=== PATIENT | female | born 1960 | race Caucasian/White ===

== ENCOUNTER → 2018-02-10 09:51 | Outpatient (CLI) | payer BC, SELFPAY ==
--- NOTE | 2018-02-10 09:36 | DI.REPORT_ITS ---
SYMPTOMS/DIAGNOSIS: F/U RT TKA BILATERAL KNEES AND LONG LEG LENGTH STUDY: Comparison with examination from 01/14/17. The patient has a right total knee replacement. The orthopedic hardware appears in good position. No lucencies are seen in or about the orthopedic hardware. The bones appear intact. The left knee shows mild periarticular spurring of the lateral femoral tibial joint in the posterior patella. The bones appear intact and normally mineralized. There do appear to be mild degenerative changes of the left ankle with narrowing of the medial joint space. There is a question of a lucency seen in the medial aspect of the talar dome and an osteochondral defect can not be excluded. The hip joints are well maintained. The right lower extremity measures 89.2 cm. The left lower extremity measures 88.5 cm. IMPRESSION: 1. Status post right TKR. 2. Mild degenerative changes of the left knee.
== END ==
PROVIDERS: Visit Provider Student in an Organized Health Care Education/Training Program
DX: M17.12 Unilateral primary osteoarthritis, left knee (principal); Z96.651 Presence of right artificial knee joint; Z47.1 Aftercare following joint replacement surgery
CPT/HCPCS: 73560; 77073

== ENCOUNTER 2018-05-01 00:43 | Outpatient (CLI) | payer BC, SELFPAY ==
--- NOTE | 2018-05-01 08:00 | DI.MAMMO_ITS ---
SYMPTOM/DIAGNOSIS: BREAST CANCER SCREENING MAMMOGRAM: 05/01/18 Mammograms were interpreted according to the usual protocol including computer analysis with CAD system, tomosynthesis and C view imaging. The breasts are of moderate density with fairly symmetrical distribution of fibroglandular tissue. No dominant mass or clumped microcalcifications are identified in either breast. The current examination is compared with previous examinations including April 2017 and there has been no gross interval change in comparison to the previous studies. CONCLUSION: No specific evidence of malignancy at this time. Routine screening examinations are suggested at yearly intervals due to the family history of breast carcinoma. Category 1, breast density category B. MQSA ASSESSMENT OF FINDINGS: Negative. Category 1. Patient will receive a letter notifying them of these results. BI-RADS category B. There are scattered areas of fibroglandular density.
[2018-05-01 08:40] LABS: ALT 27 U/L (12-78); AST 13 U/L (15-37); Albumin 3.7 g/dL (3.4-5.0); Alkaline Phosphatase 114 U/L (46-116); Anion Gap 10.3 mmol/L (3-11); BUN 21 mg/dL (7-18); Bilirubin, Total 0.8 mg/dL (0.2-1.0); CO2 25.7 mmol/L (21.0-32.0); CREATININE 0.95 mg/dL (0.55-1.02); Calcium 9.4 mg/dL (8.5-10.1); Chloride 105 mmol/L (98-107); Glucose 109 mg/dL (70-100); Potassium 4.5 mmol/L (3.5-5.1); Sodium 141 mmol/L (136-145); Total Protein 6.9 g/dL (6.4-8.2)
== END 2018-05-01 01:03 ==
DX: R00.2 Palpitations (principal); M54.5 Low back pain; Z12.31 Encounter for screening mammogram for malignant neoplasm of breast; Z80.3 Family history of malignant neoplasm of breast
CPT/HCPCS: 36415; 77063; 77067; 80053

== ENCOUNTER 2019-04-03 08:49 | Outpatient (CLI) | payer BC, SELFPAY ==
--- NOTE | 2019-04-03 08:29 | DI.RAD_ITS ---
EXAM: XR KNEE LT 1V INDICATION: lt knee pain. COMPARISON: BONE LENGTH from 02/10/2018 RIGHT KNEE LIMITED 1 OR 2 VIEW from 02/10/2018 LEFT KNEE LIMITED 1 OR 2 VIEWS from 02/10/2018 XR KNEE RT 3V AP,LAT,COLETTE from 04/03/2019 TECHNIQUE: 2D digital imaging was performed. A single lateral view was performed. None FINDINGS: No joint effusion is seen. There is mild spurring at the articular aspect of the patella. IMPRESSION:
--- NOTE | 2019-04-03 08:29 | DI.RAD_ITS ---
EXAM: XR KNEE RT 3V AP,LAT,COLETTE INDICATION: Rt knee pain. COMPARISON: RIGHT KNEE LIMITED 1 OR 2 VIEW from 02/10/2018 TECHNIQUE: 2D digital imaging was performed. FINDINGS: There has been no change in the appearance of the right total knee prosthesis or surrounding bone.
== END 2019-04-03 09:09 ==
PROVIDERS: Visit Provider Student in an Organized Health Care Education/Training Program
DX: M25.561 Pain in right knee (principal); M25.562 Pain in left knee; Z96.651 Presence of right artificial knee joint
CPT/HCPCS: 73562; 73560

== ENCOUNTER 2019-04-23 12:16 | Outpatient (REF) | payer BC, SELFPAY ==
--- NOTE | 2019-04-23 10:30 | PAPFT_PTH ---
PATIENT: Tiana Perales LOC: [facility] U#:[id number] AGE/SX: 58/F ROOM: RE04/23/[address]: Viry Barragan APRN : 1960 BED: DIS: 04/23/2019 SPEC #: [id number] RECD: 04/23/19 12:48 STATUS: HERBER RENapoleon #: [id number] SEVERIANO: 04/23/19 10:[address]: Viry Barragan DEPT: [facility] Cytology RECD BY: Bri Hobbs Tissues: 1 - CX/ENDOCX FOR PAP SMEARS Procedures: PAP THIN PREP/UVM Screening HPV DNA PROBE Comments: [id number]
== END 2019-04-23 12:36 ==
LOC: LBN 12:16
DX: Z12.4 Encounter for screening for malignant neoplasm of cervix (principal); Z11.51 Encounter for screening for human papillomavirus (HPV)
CPT/HCPCS: 88142; 87624

== ENCOUNTER 2019-06-26 07:19 | Outpatient (CLI) | payer BC, SELFPAY ==
[2019-06-26 08:22] LABS: Hemoglobin A1C 5.8 % (3.8-5.6)
[2019-06-26 08:37] LABS: Anion Gap 9.7 mmol/L (3-11); BUN 19 mg/dL (7-18); CO2 25.3 mmol/L (21.0-32.0); CREATININE 0.79 mg/dL (0.55-1.02); Calcium 9.2 mg/dL (8.5-10.1); Chloride 105 mmol/L (98-107); Glucose 98 mg/dL (74-106); Potassium 4.4 mmol/L (3.5-5.1); Sodium 140 mmol/L (136-145)
== END 2019-06-26 07:39 ==
DX: Z00.00 Encounter for general adult medical examination without abnormal findings (principal); Z86.39 Personal history of other endocrine, nutritional and metabolic disease; Z13.1 Encounter for screening for diabetes mellitus
CPT/HCPCS: 36415; 80048; 83036

== ENCOUNTER 2019-08-04 02:05 | Outpatient (CLI) | payer BC, SELFPAY ==
--- NOTE | 2019-08-04 08:50 | DI.MAMMO_ITS ---
EXAM: MG MAMMO SCREENING CLINICAL HISTORY: screening,Z12.39. TECHNIQUE: Bilateral full field digital CC and MLO mammographic images were obtained with 3D tomosyn thesis and utilizing computer aided detection (CAD). COMPARISON: Available for comparison. FINDINGS: Masses/Architectural Distortion: None seen. The nodular density in the upper right breast appears sta ble. Microcalcifications: No suspicious pleomorphic-type are seen. Skin Thickening/Nipple Retraction: None. IMPRESSION: 1. No significant interval change with no specific features of malignancy noted. 2. Unless there is more urgent need, screening mammography is recommended, as per [employer] guidelines. ACR BI-RAD Category- 1 Negative Breast Density - Category B - Scattered areas of fibroglandular density A negative radiographic report should not delay biopsy if a dominant or clinically suspicious mass is present. Up to ten percent of cancers are not identified on mammography. A negative report may reinforce clinical impression. Adenosis and dense breasts may obscure an underlying neoplasm. False positive reports average 6 to 10%. Patient will receive a letter notifying them of these results.
== END 2019-08-04 02:25 ==
DX: Z12.31 Encounter for screening mammogram for malignant neoplasm of breast (principal)
CPT/HCPCS: 77063; 77067

== ENCOUNTER 2019-12-31 12:12 | Outpatient (CLI) | payer BC, SELFPAY ==
--- NOTE | 2019-12-31 10:30 | DI.RAD_ITS ---
EXAM: XR KNEE LT 2V AP,LAT CLINICAL HISTORY: eval L knee pain, medial TECHNIQUE: COMPARISON: CR XR KNEE LT 1V from 04/03/2019 FINDINGS: Two views were obtained. The cartilaginous joint spaces appear fairly well maintained. Mild margina l osteophyte formation noted at multiple sites. No other significant bony or soft tissue abnormality seen. IMPRESSION: Mild degenerative changes as described above
== END 2019-12-31 12:32 ==
PROVIDERS: Visit Provider Student in an Organized Health Care Education/Training Program
DX: M25.562 Pain in left knee (principal); M17.12 Unilateral primary osteoarthritis, left knee
CPT/HCPCS: 73560

== ENCOUNTER 2020-01-08 03:40 | Outpatient (CLI) | payer BC, SELFPAY ==
--- NOTE | 2020-01-08 15:00 | DI.MRI_ITS ---
EXAM: MR LOWER JOINT LT WO CLINICAL HISTORY: new left knee pain after twisting, ?MMT,INTERNAL DERANGEMENT, M23.92. TECHNIQUE: Multiplanar multisequence MRI was performed. COMPARISON: CR XR KNEE LT 2V AP,LAT from 12/31/2019 FINDINGS: The examination is limited by patient body habitus and motion artifact. BONES: There is no fracture or contusion pattern. JOINTS: Articular cartilage is unremarkable. Small to moderate joint effusion. Marginal osteophytes are seen in the femoral tibial joint. TENDONS: Extensor mechanism: Unremarkable. Medial retinaculum: Unremarkable. Lateral retinaculum: Unremarkable. Popliteus: Unremarkable. MUSCLES: Unremarkable. MENISCI: Hyperintense signal is seen near the root of the medial meniscus suggestive of a tear. The lateral meniscus is unremarkable. SOFT TISSUES: Edema is seen in the soft tissues around the knee. There is a popliteal cyst. LIGAMENTS: Anterior Cruciate: Unremarkable. Posterior Cruciate: Unremarkable. Medial Collateral:Unremarkable. Lateral Collateral: Unremarkable. OTHER: IMPRESSION: 1. Study limited due to patient body habitus and motion artifact. 2. Hyperintense signal seen near the root of the medial meniscus suggestive of a tear. 3. No definite ligament tear. 4. Joint effusion and popliteal cyst. 5. Degenerative changes of the knee. DATA REPOSITORY:
== END 2020-01-08 04:00 ==
PROVIDERS: Visit Provider Student in an Organized Health Care Education/Training Program
DX: M23.92 Unspecified internal derangement of left knee (principal); M25.562 Pain in left knee; M25.462 Effusion, left knee; M71.22 Synovial cyst of popliteal space [Baker], left knee; M17.12 Unilateral primary osteoarthritis, left knee
CPT/HCPCS: 73721

== ENCOUNTER 2020-04-08 08:35 | Outpatient (CLI) | payer BC, SELFPAY ==
[2020-04-09 12:43] LABS: COVID-19 RT-PCR Result NEGATIVE (Negative)
== END 2020-04-08 08:55 ==
PROVIDERS: Visit Provider Student in an Organized Health Care Education/Training Program
DX: Z11.59 Encounter for screening for other viral diseases (principal); Z01.818 Encounter for other preprocedural examination; M23.92 Unspecified internal derangement of left knee
CPT/HCPCS: U0003

== ENCOUNTER 2020-04-12 07:58 | Day surgery (SDC) | payer BC, SELFPAY ==
[2020-04-12] VITALS (7 sets, daily range): BP systolic 91–118; BP diastolic 44–82; PULSE 59–81; RESP 14–20; TEMP 36.3–36.8; O2SAT 95–99
--- NOTE | 2020-04-12 07:29 | PDOC.DSDIS_ITS ---
Discharge Plan Disposition Patient Disposition: HOME Condition: Good Discharge Details Reason For Visit: Left knee - tear of medial meniscus Attending Provider: Jose Corado Primary Care Provider: Viry Barragan Home Meds and New Rx's Prescriptions: New hydrocodone-acetaminophen 5-325 mg tablet 1 tab PO Q6H PRN (Reason: severe pain) Qty: 4 RF: 0 acetaminophen 500 mg tablet 500 mg PO Q6H PRN (Reason: pain) Qty: 60 RF: 2 ibuprofen 600 mg tablet 600 mg PO TID PRN (Reason: pain) Qty: 60 RF: 2 Continued fexofenadine-pseudoephedrine [Trisha-D 12 Hour] 1 EACH tablet extended release 12 hr 1 tab-cap PO BID RF: 0 albuterol sulfate [Ventolin HFA] 90 mcg/actuation HFA aerosol inhaler 2 puff IH QID PRN (Reason: shortness of breath or wheezing) Qty: 18 RF: 2 Discharge Instructions Stand Alone Forms: [facility] K[facility]throscopy Referrals: Jose Corado MD [ [facility] STAFF PHYSICIAN] - Activity:: Elevate Remove Dressings/Wound Care:: 72 hours Shower/Bathe:: 72 hours Diet:: As Tolerated Discharge Orders Discharge Orders: Discharge Order (Routine); Ordered 04/12/20 Ordered By: Buffy Ayers DS: Diagnosis Discharge Diagnosis (1) Tear of medial meniscus of left knee: Status: Acute (2) Internal derangement of left knee: Status: Acute
[2020-04-12] MEDS: Lactated Ringers 1,000 ML 80 ML IV ×2 (09:20→10:08)
[2020-04-12] MEDS: ceFAZolin 3,000 MG in Normal Saline 100 ML 200 MG IVPB (09:22)
[2020-04-12] MEDS: Acetaminophen 325 MG TAB 650 MG PO (11:34)
--- NOTE | 2020-04-12 21:40 | ROE_ITS ---
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 This was confirmed based on MRI and exam findings. Nonoperative measures were exhausted but disability and pain persisted. While there was some arthritis, there appeared to be maintained joint space. I discussed knee arthroscopy with meniscal intervention with the patient. I reviewed the risks of the procedure to include, but not limited to, bleeding, infection, pain, stiffness, damage to nerves or vessels, recurrence, blood clot. Despite these risks, the patient elected to proceed. Findings: A diagnostic arthroscopy was performed with the following findings: Suprapatellar Pouch: Mild inflammatory changes, no loose bodies Medial Compartment: Complex medial meniscal tear, tear extending into the root but not completely destabilizing the root, intermittent grade III chondromalacia throughout the majority of the medial compartment, no loose bodies Notch: ACL and PCL were intact Lateral Compartment: No meniscal tear, intact meniscal root, no significant chondromalacia or signs of arthritis, no loose bodies Patellofemoral Compartment: Grade IV chondromalacia of the trochlea and grade III chondromalacia of the patella, no apparent patellar maltracking Procedure Description: Tiana was greeted in the preoperative holding area where the correct side was identified and marked. The consent was reviewed with the patient and signed. The history and physical was updated. All questions were answered. She was taken back to the operating room. The patient was placed into the supine position on the operating room table. A nonsterile tourniquet was placed high onto the leg but not used. All bony prominences were well padded. Prophylactic antibiotics in the form of cefazolin were administered. The left leg was then prepped with Chloraprep and draped in a standard fashion with stockinette and extremity drape. A timeout to confirm correct identity, side and site, procedure, allergies, anesthesia, and medical concerns was performed. The leg was placed into a pneumatic leg hauser, [id number]. A standard lateral portal was made at the lateral border of the patella tendon in line with the inferior pole of the patella, soft spot. The skin and deep tissue was incised sharply and the blunt trochar was inserted atraumatically. A diagnostic art hroscopy was performed and the findings are listed above. The suprapatellar pouch had mild inflammatory changes. The patellofemoral articulation showed severe articular damage with grade IV chondromalacia of the majority of the trochlea as well as grade II/III chondromalacia of the patella. There was good tracking. The lateral gutter had no loose bodies but there was a visible peripheral osteophyte from the femur and the medial gutter had no loose bodies but peripheral osteophyte was seen around the femur. The knee was brought into some valgus stress in extension to open the medial compartment. A medial portal was made, localized by a spinal needle. The portal was created with an #11 blade through skin and capsule under direct visualization avoiding any meniscal injury. A probe was then inserted into the medial compartment. The medial compartment was fully inspected. The chondral surface of the tibia showed mostly grade II chondromalacia with focal areas of grade III chondromalacia and the surface of the femur showed similar findings with diffuse grade II chondromalacia and some areas of more focal grade III chondromalacia. No grossly exposed subchondral bone. The medial meniscus had a primary radial type tear adjacent to the root. There was also some complexity of this tear with undersurface tearing of the inferior leaflet. The radial component of this tear went through approximately two thirds of the meniscus but there was still peripheral fibers intact. After evaluation, the meniscus was debrided down to a stable base using a series of biters and arthroscopic keith. It was probed afterwards to confirm that the tear had been removed and the meniscus was stable. The notch was then inspected which showed an intact ACL and an intact PCL. The leg was then brought into a figure of 4 position. The lateral compartment was fully inspected with the arthroscope and a probe. The chondral surface of the lateral femur showed no significant chondromalacia. The chondral surface of the lateral tibia showed no significant chondromalacia. The lateral meniscus had no meniscal tear. The arthroscope was brought back into the suprapatellar pouch and the leg was in full extension. The knee was thoroughly irrigated with the arthroscopic fluid on high flow and pressure. Inflow was stopped and excess fluid was removed. The wounds were closed with 4-0 Nylon. They were dressed with Xeroform, 4x4 gauze, ABD pad, Kerlix and an PIERRE wrap. A cryo-cuff was applied. The patient tolerated the procedure well and was returned to the [facility] Day Surgery area in a stable condition suffering no known complication.
== END 2020-04-12 12:20 | disposition home or self-care (01) ==
LOC: SUR 07:58
PROVIDERS: Visit Provider Student in an Organized Health Care Education/Training Program
PROC: (CPT 29870; principal; 2020-04-12 10:15)
DX: M23.232 Derangement of other medial meniscus due to old tear or injury, left knee (principal); J45.909 Unspecified asthma, uncomplicated; F32.9 Major depressive disorder, single episode, unspecified; Z85.3 Personal history of malignant neoplasm of breast
CPT/HCPCS: 29881; J0690; J1100; J1885; J2250; J2405; J2704

== ENCOUNTER 2020-08-29 01:11 | Outpatient (CLI) | payer BC, SELFPAY ==
--- NOTE | 2020-08-29 16:13 | DI.MAMMO_ITS ---
EXAM: MG MAMMO SCREENING CLINICAL HISTORY: screening,Z12.39. TECHNIQUE: Bilateral full field digital CC and MLO mammographic images were obtained with 3D tomosyn thesis and utilizing computer aided detection (CAD). COMPARISON: Prior mammograms dating back to 2011, the most recent being July 2019. FINDINGS: There are no spiculated masses nor malignant appearing microcalcification groups. Asymmetric density in the right breast is unchanged from prior studies. There is no significant architectural distortio n nor skin thickening-retraction. IMPRESSION: No radiographic evidence of malignancy. BI-RADS Category 1 - Negative Breast Density - Category B - Scattered areas of fibroglandular density Breast density Category C or D implies that the patient has dense breast tissue. Dense breast tissue can make it harder to find cancer on a mammogram. Dense breast tissue is also associated with an incr eased risk of breast cancer. This information about the result of the mammogram report was provided to the patient to raise their awareness. Use this report when you speak with the patient about their risks for breast cancer, which includes their family history. At that time, you may recommend additional screening tests (Ultrasoun d or MRI) as these tests may add significant information. A negative radiographic report should not delay biopsy if a dominant or clinically suspicious mass is present. Up to ten percent of cancers are not identified on mammography. A negative report may reinforce clinical impression. Adenosis and dense breasts may obscure an underlying neoplasm. False positive reports average 6 to 10%. Patient will receive a letter notifying them of these results.
== END 2020-08-29 01:31 ==
DX: Z12.31 Encounter for screening mammogram for malignant neoplasm of breast (principal)
CPT/HCPCS: 77063; 77067

== ENCOUNTER 2021-03-31 15:03 | Outpatient (CLI) | payer BC, SELFPAY ==
--- NOTE | 2021-03-31 15:50 | DI.RAD_ITS ---
Exam(s) XR FOOT LT COMPLETE EXAM: XR FOOT LT COMPLETE CLINICAL HISTORY: ? stress fracture: swelling and pain after inc. wa, M79.202. TECHNIQUE: 2D digital imaging was performed of the left foot. Three images were obtained. AP, obli que and lateral views were obtained. COMPARISON: No exams were available for comparison FINDINGS: BONES: No acute fracture is present. No bony destructive lesion is seen. There is a small plantar valeriy caneal spur. JOINTS: No dislocation present. Degenerative changes are seen in the ankle and hindfoot. SOFT TISSUE: Normal. IMPRESSION: 1. No acute fracture or dislocation. 2. Mild degenerative changes in the foot and ankle. DATA REPOSITORY: RADIATION DOSE DELIVERED:
== END 2021-03-31 15:23 ==
DX: M79.672 Pain in left foot (principal); M79.89 Other specified soft tissue disorders; M25.572 Pain in left ankle and joints of left foot; M19.072 Primary osteoarthritis, left ankle and foot; M77.32 Calcaneal spur, left foot
CPT/HCPCS: 73630

== ENCOUNTER 2021-04-19 00:46 | Outpatient (CLI) | payer BC, SELFPAY ==
--- NOTE | 2021-04-19 06:56 | DI.US_ITS ---
Exam(s) US BREAST LT COMPLETE EXAM: US BREAST LT COMPLETE CLINICAL HISTORY: tenderness and thickening at 10:00 inner aspect,NIPPLE DRAINAGE,N64.59. TECHNIQUE: Complete ultrasound of the left breast was performed including all 4 quadrants, the retro areolar region, and the ipsilateral axilla. This 60-year-old patient has a medial left breast pain a pproximately 10 o'clock position. Has also had recent nonbloody ipsilateral nipple discharge. She h as significant family history. Apparently both her mother and sister were diagnosed with breast canc er. COMPARISON: Prior mammograms were reviewed. FINDINGS: Left breast ultrasound today reveals no evidence of solid or significant cystic findings in all [address] Careful scanning of the area of clinical concern in the upper inner quadrant of the left renata ast reveals no focal ultrasound findings. There also no findings in the immediate retroareolar region. Benign-appearing lymph nodes are noted in the left axilla. IMPRESSION: Negative complete left breast ultrasound. Today's left breast mammogram (see separate report) revealed no significant findings nor change from prior mammograms Appropriate follow-up is cytology examination of nipple discharge. In addition [address] in this patient given her very positive family history. She is not aware if her sister underw ent genetic testing. BI-RADS Category 2 - Benign Findings. But with recommendations as above. Breast Density - Category B - Scattered areas of fibroglandular density Breast density Category C or D implies that the patient has dense breast tissue. Dense breast tissue can make it harder to find cancer on a mammogram. Dense breast tissue is also associated with an incr eased risk of breast cancer. This information about the result of the mammogram report was provided to the patient to raise their awareness. Use this report when you speak with the patient about their risks for breast cancer, which includes their family history. At that time, you may recommend additional screening tests (Ultrasoun d or MRI) as these tests may add significant information. A negative radiographic report should not delay biopsy if a dominant or clinically suspicious mass is present. Up to ten percent of cancers are not identified on mammography. A negative report may reinforce clinical impression. Adenosis and dense breasts may obscure an underlying neoplasm. False positive reports average 6 to 10%. Patient will receive a letter notifying them of these results.
--- NOTE | 2021-04-19 11:00 | DI.MAMMO_ITS ---
Exam(s) MAMMO DIAGNOSTIC UNI EXAM: MAMMO DIAGNOSTIC UNI-LEFT CLINICAL HISTORY: DIAGNOSTIC, NIPPLE DISCHARGE, TENDERNESS AND THICKENING 10:00,ABNL BREAST. TECHNIQUE: Unilateral spot mammographic images were obtained with 3D tomosynthesis technique and uti lizing computer aided detection (CAD). COMPARISON: Prior mammograms dating back to 2011, the most recent being August 2020. Apparently this patient now has left breast pain, medially. She does not feel a lump and apparently had recent unil ateral left breast non bloody nipple discharge. FINDINGS: There are no CAD designations in left breast. There has been no significant change in the appearance and distribution of the fibroglandular tissue of the left breast. There are no new spiculated masses nor malignant-appearing microcalcification groups in the left [address] and there is no new architectural distortion or skin thickening-traction. IMPRESSION: No radiographic evidence of malignancy in the left breast nor significant change compared to prior ma mmograms. Left breast ultrasound performed today (see separate dictation) revealed no significant findings Given this patient's clinical symptoms and very significant family history (she informs me that her m other of metastatic breast cancer and that her biologic sister has also had breast cancer) [facility]. The patient was informed of the findings and follow-up recommendations [facility]. BI-RADS Category 2 - Benign Findings. See discussion above concerning MRI Breast Density - Category B - Scattered areas of fibroglandular density Breast density Category C or D implies that the patient has dense breast tissue. Dense breast tissue can make it harder to find cancer on a mammogram. Dense breast tissue is also associated with an incr eased risk of breast cancer. This information about the result of the mammogram report was provided to the patient to raise their awareness. Use this report when you speak with the patient about their risks for breast cancer, which includes their family history. At that time, you may recommend additional screening tests (Ultrasoun d or MRI) as these tests may add significant information. A negative radiographic report should not delay biopsy if a dominant or clinically suspicious mass is present. Up to ten percent of cancers are not identified on mammography. A negative report may reinforce clinical impression. Adenosis and dense breasts may obscure an underlying neoplasm. False positive reports average 6 to 10%. Patient will receive a letter notifying them of these results.
== END 2021-04-19 01:06 ==
DX: N64.59 Other signs and symptoms in breast (principal); Z80.3 Family history of malignant neoplasm of breast
CPT/HCPCS: 76642; 77061; 77065; G0279

== ENCOUNTER 2021-05-17 01:31 | Outpatient (CLI) | payer BC, SELFPAY ==
[2021-05-17 13:32] LABS: ALT 21 U/L (14-59); AST 14 U/L (15-37); Albumin 3.7 g/dL (3.4-5.0); Alkaline Phosphatase 111 U/L (46-116); Anion Gap 7.3 mmol/L (3-11); BUN 16 mg/dL (7-18); Bilirubin, Total 1.2 mg/dL (0.2-1.0); CO2 28.7 mmol/L (21.0-32.0); CREATININE 0.8 mg/dL (0.55-1.02); Calcium 8.9 mg/dL (8.5-10.1); Chloride 106 mmol/L (98-107); Glucose 85 mg/dL (74-106); Potassium 4.6 mmol/L (3.5-5.1); Sodium 142 mmol/L (136-145); Total Protein 6.5 g/dL (6.4-8.2)
== END 2021-05-17 01:32 | disposition home or self-care (01) ==
LOC: LOS 01:32
DX: Z00.00 Encounter for general adult medical examination without abnormal findings (principal)
CPT/HCPCS: 36415; 80053

== ENCOUNTER 2021-10-03 00:58 | Outpatient (CLI) | payer BC, SELFPAY ==
--- NOTE | 2021-10-03 07:00 | DI.MAMMO_ITS ---
Exam(s) MAMMO SCREENING EXAM: MAMMO SCREENING CLINICAL HISTORY: screening, Z12.39. TECHNIQUE: Bilateral full field digital CC and MLO mammographic images were obtained with 3D tomosyn thesis and utilizing computer aided detection (CAD). COMPARISON: Prior mammograms were reviewed, the most recent being April. No pres ent breast complaints.. Significant family history. Her mother apparently of metastatic breast cancer and her biologic sister has also been diagnosed with breast cancer. FINDINGS: There has been no significant change in appearance and distribution of the fibroglandular tissue. There are no new spiculated masses. A benign-appearing group of 2 microcalcifications laterally in t he right breast is now evident. Previously there was a solitary benign microcalcifications this leve l. Nevertheless, this group has benign appearance There are no new spiculated masses nor malignant appearing microcalcification groups. There is no significant architectural distortion nor skin thickening-retraction. IMPRESSION: Benign radiographic findings. No radiographic evidence of malignancy. Given this patient's very positive family history (mother and sister breast cancer) I feel she should undergo breast MRI examination BI-RADS Category 0 - Assessment Incomplete: Need additional imaging evaluation Breast Density - Category B - Scattered areas of fibroglandular density Breast density Category C or D implies that the patient has dense breast tissue. Dense breast tissue can make it harder to find cancer on a mammogram. Dense breast tissue is also associated with an incr eased risk of breast cancer. This information about the result of the mammogram report was provided to the patient to raise their awareness. Use this report when you speak with the patient about their risks for breast cancer, which includes their family history. At that time, you may recommend additional screening tests (Ultrasoun d or MRI) as these tests may add significant information. A negative radiographic report should not delay biopsy if a dominant or clinically suspicious mass is present. Up to ten percent of cancers are not identified on mammography. A negative report may reinforce clinical impression. Adenosis and dense breasts may obscure an underlying neoplasm. False positive reports average 6 to 10%. Patient will receive a letter notifying them of these results.
== END 2021-10-03 01:18 ==
DX: Z12.31 Encounter for screening mammogram for malignant neoplasm of breast (principal); R92.0 Mammographic microcalcification found on diagnostic imaging of breast; Z80.3 Family history of malignant neoplasm of breast
CPT/HCPCS: 77063; 77067

== ENCOUNTER 2022-06-22 17:59 | Emergency (ER) | payer BC, SELFPAY ==
[2022-06-22 18:07] VITALS: BP 131/81; PULSE 83; RESP 22; TEMP 36.7; O2SAT 98
--- NOTE | 2022-06-22 18:15 | DI.RAD_ITS ---
Exam(s) XR PORTABLE CHEST AP EXAM: XR PORTABLE CHEST APz CLINICAL HISTORY: cough, hx asthma, fam hx lung ca TECHNIQUE: 2D digital imaging was performed. COMPARISON: CR XR FOOT LT COMPLETE from 03/31/2021 FINDINGS: LUNGS: Clear. No pleural abnormality seen. HEART: Normal size. AORTA: Normal diameter. BONES: Unremarkable for age. Soft tissues: Unremarkable. IMPRESSION: No acute findings. DATA REPOSITORY: RADIATION DOSE DELIVERED:
[2022-06-22 18:35] VITALS: RESP 20
[2022-06-22] MEDS: Albuterol/Ipratropium 3 ML UPD VIAL UPD (18:35)
[2022-06-22] MEDS: Dexamethasone 10 MG/ML VIAL IM (18:38)
--- NOTE | 2022-06-22 19:24 | DI.VRAD_ITS ---
PROCEDURE INFORMATION: Exam: XR Chest Exam date and time: 06/22/2022 6:13 PM Age: 62 years old Clinical indication: Cough; Patient HX: HX of asthma; Family HX of lung CA TECHNIQUE: Imaging protocol: Radiologic exam of the chest. Views: 1 view. COMPARISON: No relevant prior studies available. FINDINGS: Lungs: Unremarkable. No consolidation. Pleural spaces: Unremarkable. No pleural effusion. No pneumothorax. Heart/Mediastinum: Unremarkable. No cardiomegaly. Bones/joints: Unremarkable. IMPRESSION: No acute findings. Dictated and Authenticated by: Gopi Fermin MD. Ordering:VIKY Tan MD
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
== END 2022-06-22 19:40 | disposition home or self-care (01) ==
PROVIDERS: Emergency Provider Emergency Medicine; PCP Nurse Practitioner Family
DX: R05.9 Cough, unspecified (principal); J45.909 Unspecified asthma, uncomplicated
CPT/HCPCS: 94640; 96372; 99284; 71045; J1100; J7620

== ENCOUNTER 2022-09-21 03:29 | Outpatient (CLI) | payer BC, SELFPAY ==
[2022-09-21 09:50] LABS: HCT 41.4 % (36.0-46.0); HGB 13.6 g/dL (11.2-15.7); MCH 29.3 pg (27.0-33.0); MCHC 32.9 % (32.0-36.0); MCV 89 fL (80-95); MPV 10.3 fL (8.0-11.0); Platelet Count 305 10^3/uL (130-400); RBC 4.64 10^6/uL (3.93-5.22); RDW 13.2 % (11.7-14.6); WBC 8.38 10^3/uL (4.4-10.8)
[2022-09-21 10:04] LABS: Hemoglobin A1C 5.7 % (<5.7)
[2022-09-21 11:16] LABS: ALT 21 U/L (14-59); AST 15 U/L (15-37); Alkaline Phosphatase 123 U/L (46-116); Anion Gap 7.2 mmol/L (3-11); BUN 18 mg/dL (7-18); Bilirubin, Total 1.4 mg/dL (0.2-1.0); CO2 28.8 mmol/L (21.0-32.0); CREATININE 0.9 mg/dL (0.55-1.02); Calcium 9.2 mg/dL (8.5-10.1); Calculated LDL 179 mg/dL (<100); Chloride 105 mmol/L (98-107); Cholesterol 250 mg/dL (<200); Estimated GFR 72.28 (mL/min/1.73m2); Glucose 92 mg/dL (74-106); HDL Cholesterol 52 mg/dL (40-60); Potassium 4.1 mmol/L (3.5-5.1); Sodium 141 mmol/L (136-145); Total Protein 7.1 g/dL (6.4-8.2); Triglyceride 99 mg/dL (<150)
== END 2022-09-21 03:30 | disposition home or self-care (01) ==
PROVIDERS: PCP Nurse Practitioner Family; Visit Provider Nurse Practitioner Family
DX: Z00.00 Encounter for general adult medical examination without abnormal findings (principal); J45.909 Unspecified asthma, uncomplicated; L60.9 Nail disorder, unspecified; R63.8 Other symptoms and signs concerning food and fluid intake; R73.01 Impaired fasting glucose; F32.A Depression, unspecified
CPT/HCPCS: 36415; 80053; 80061; 85027; 83036; 84443

== ENCOUNTER 2022-10-23 01:47 | Outpatient (CLI) | payer BC, SELFPAY ==
--- NOTE | 2022-10-23 06:30 | DI.MAMMO_ITS ---
Exam(s) MAMMO SCREENING EXAM: MAMMO SCREENING CLINICAL HISTORY: screening,z12.39. TECHNIQUE: Bilateral full field digital CC and MLO mammographic images were obtained with 3D tomosyn thesis and utilizing computer aided detection (CAD). COMPARISON: Prior mammograms were reviewed. Breast MRI study November 2021 was reviewed. That was not negative BI-RADS category 1 MRI study. This patient has a very strong family history. Her mother apparently of metastatic breast cance r. Biologic sister also has breast cancer. FINDINGS: There has been no significant change in the appearance and distribution of the fibroglandular tissue. There are no new spiculated masses nor malignant appearing microcalcification groups. There is no significant architectural distortion nor skin thickening-retraction. IMPRESSION: No radiographic evidence of malignancy. BI-RADS Category 1 - Negative Breast Density - Category B - Scattered areas of fibroglandular density Breast density Category C or D implies that the patient has dense breast tissue. Dense breast tissue can make it harder to find cancer on a mammogram. Dense breast tissue is also associated with an incr eased risk of breast cancer. This information about the result of the mammogram report was provided to the patient to raise their awareness. Use this report when you speak with the patient about their risks for breast cancer, which includes their family history. At that time, you may recommend additional screening tests (Ultrasoun d or MRI) as these tests may add significant information. A negative radiographic report should not delay biopsy if a dominant or clinically suspicious mass is present. Up to ten percent of cancers are not identified on mammography. A negative report may reinforce clinical impression. Adenosis and dense breasts may obscure an underlying neoplasm. False positive reports average 6 to 10%. Patient will receive a letter notifying them of these results.
== END 2022-10-23 02:07 ==
LOC: DI 01:47
PROVIDERS: PCP Nurse Practitioner Family; Visit Provider Nurse Practitioner Family
DX: Z12.31 Encounter for screening mammogram for malignant neoplasm of breast (principal)
CPT/HCPCS: 77063; 77067

== ENCOUNTER → 2023-10-29 04:02 | Outpatient (CLI) | payer BC, SELFPAY ==
--- NOTE | 2023-10-29 06:45 | DI.MAMMO_ITS ---
Exam(s) MAMMO SCREENING EXAM: MAMMO SCREENING CLINICAL HISTORY: screening,Z12.39. TECHNIQUE: Bilateral full field digital CC and MLO mammographic images were obtained with 3D tomosyn thesis and utilizing computer aided detection (CAD). COMPARISON: Prior mammograms were reviewed. Very strong family history breast cancer. FINDINGS: There has been no significant change in the appearance and distribution of the fibroglandular tissue. There are no new spiculated masses nor malignant appearing microcalcification groups. There is no significant architectural distortion nor skin thickening-retraction. IMPRESSION: No radiographic evidence of malignancy. BI-RADS Category 1 - Negative Breast Density - Category B - Scattered areas of fibroglandular density Breast density Category C or D implies that the patient has dense breast tissue. Dense breast tissue can make it harder to find cancer on a mammogram. Dense breast tissue is also associated with an incr eased risk of breast cancer. This information about the result of the mammogram report was provided to the patient to raise their awareness. Use this report when you speak with the patient about their risks for breast cancer, which includes their family history. At that time, you may recommend additional screening tests (Ultrasoun d or MRI) as these tests may add significant information. A negative radiographic report should not delay biopsy if a dominant or clinically suspicious mass is present. Up to ten percent of cancers are not identified on mammography. A negative report may reinforce clinical impression. Adenosis and dense breasts may obscure an underlying neoplasm. False positive reports average 6 to 10%. Patient will receive a letter notifying them of these results.
== END ==
PROVIDERS: PCP Nurse Practitioner Family; Visit Provider Nurse Practitioner Family
DX: Z12.31 Encounter for screening mammogram for malignant neoplasm of breast (principal)
CPT/HCPCS: 77063; 77067

== ENCOUNTER 2024-01-27 03:43 | Outpatient (CLI) | payer BC, SELFPAY ==
[2024-01-27 10:26] LABS: Abs Immature Grans 0.02 10^3/uL (0.0-0.06); Absolute Basophil Count 0.06 10^3/uL (0.0-0.2); Absolute Eosinophil Count 0.17 10^3/uL (0.0-0.7); Absolute Lymphocyte Count 2.64 10^3/uL (1.2-3.4); Absolute Monocyte Count 0.48 10^3/uL (0.1-0.8); Absolute Neutrophil Count 4.39 10^3/uL (1.2-6.7); Basophils % 0.8 %; Eosinophils % 2.2 %; HCT 40.5 % (36.0-46.0); HGB 13.2 g/dL (11.2-15.7); Immature Grans % 0.3 %; MCH 28.3 pg (27.0-33.0); MCHC 32.6 % (32.0-36.0); MCV 87 fL (80-95); Monocytes % 6.2 %; Neutrophils % 56.5 %; Platelet Count 298 10^3/uL (130-400); RBC 4.66 10^6/uL (3.93-5.22); RDW 13.3 % (11.7-14.6); RDW-SD 42.2 fL; WBC 7.76 10^3/uL (4.4-10.8)
[2024-01-27 10:43] LABS: Hemoglobin A1C 5.6 % (<5.7)
[2024-01-27 11:01] LABS: ALT 20 U/L (14-59); AST 17 U/L (15-37); Albumin 3.8 g/dL (3.4-5.0); Alkaline Phosphatase 109 U/L (46-116); Anion Gap 9.6 mmol/L (3-11); BUN 18 mg/dL (7-18); CO2 26.4 mmol/L (21.0-32.0); CREATININE 0.9 mg/dL (0.55-1.02); Calcium 9.2 mg/dL (8.5-10.1); Calculated LDL 157 mg/dL (<100); Chloride 106 mmol/L (98-107); Cholesterol 227 mg/dL (<200); Estimated GFR 71.83 (mL/min/1.73m2); Glucose 94 mg/dL (74-106); HDL Cholesterol 54 mg/dL (40-60); Sodium 142 mmol/L (136-145); Total Protein 7.3 g/dL (6.4-8.2); Triglyceride 81 mg/dL (<150)
[2024-01-27 18:31] LABS: Lab Add On Test DONE
[2024-01-27 19:21] LABS: Hepatitis C Ab w Rflx HCV PCR Negative (Negative)
[2024-01-29 10:37] LABS: HIV-1/2 Ag & Ab Screen Negative (Negative)
[2024-01-29 11:13] LABS: HBs Antibody, Quant <3.1 mIU/mL (See Note); Hep B Surface Ab Negative (See Note); Hepatitis B Core Antibody Negative (Negative); Hepatitis B Surface Antigen Negative (Negative)
== END 2024-01-27 03:44 | disposition home or self-care (01) ==
LOC: LBO 03:43
PROVIDERS: PCP Nurse Practitioner Family; Visit Provider Nurse Practitioner Family
DX: R73.03 Prediabetes (principal); Z11.59 Encounter for screening for other viral diseases
CPT/HCPCS: 36415; 80053; 80061; 86704; 86706; 86803; 87340; 87389; 83036; 85025

== ENCOUNTER 2024-01-31 09:17 | Outpatient (REF) | payer BC, SELFPAY ==
--- NOTE | 2024-01-31 08:30 | PAPFT_PTH ---
PATIENT: Tiana Perales LOC: [facility] U#:[id number] AGE/SX: 63/F ROOM: RE01/31/[address]: LAVINIA Saba : 1960 BED: DIS: 01/31/2024 SPEC #: [id number] RECD: 01/31/24 12:56 STATUS: HERBER RENapoleon #: [id number] SEVERIANO: 01/31/24 08:[address]: Ruma Torres DEPT: [facility] Cytology RECD BY: Bri Hobbs Tissues: 1 - CX/ENDOCX FOR PAP SMEARS Procedures: PAP THIN PREP/[facility] Screening HPV DNA PROBE Comments: [id number] (HPV 16 & 18/45)
== END 2024-01-31 09:18 | disposition home or self-care (01) ==
LOC: LBN 09:17
PROVIDERS: PCP Nurse Practitioner Family; Visit Provider Nurse Practitioner Family
DX: H61.21 Impacted cerumen, right ear (principal); Z00.00 Encounter for general adult medical examination without abnormal findings; K51.20 Ulcerative (chronic) proctitis without complications; Z71.89 Other specified counseling; E66.01 Morbid (severe) obesity due to excess calories; Z68.42 Body mass index [BMI] 45.0-49.9, adult
CPT/HCPCS: 88142; 87624

== ENCOUNTER 2024-10-27 15:55 | Outpatient (REF) | payer BC, SELFPAY ==
[2024-10-31 17:39] LABS: Calprotectin <50.0 mcg/g
== END 2024-10-27 15:56 | disposition home or self-care (01) ==
LOC: LBN 15:55
PROVIDERS: PCP Nurse Practitioner Family; Visit Provider Internal Medicine Gastroenterology
DX: K51.511 Left sided colitis with rectal bleeding (principal)
CPT/HCPCS: 83630; 83993

== ENCOUNTER 2024-11-19 03:39 | Outpatient (CLI) | payer BC, SELFPAY ==
[2024-11-19 12:25] LABS: BUN 17 mg/dL (7-18); CREATININE 0.8 mg/dL (0.55-1.02); Calcium 9.1 mg/dL (8.5-10.1); Chloride 105 mmol/L (98-107); Estimated GFR 82.23 (mL/min/1.73m2); Glucose 91 mg/dL (74-106); Potassium 4.1 mmol/L (3.5-5.1); Sodium 136 mmol/L (136-145)
== END 2024-11-19 03:40 | disposition home or self-care (01) ==
PROVIDERS: PCP Nurse Practitioner Family; Visit Provider Internal Medicine Gastroenterology
DX: K51.511 Left sided colitis with rectal bleeding (principal)
CPT/HCPCS: 36415; 80048

== ENCOUNTER 2025-02-23 08:05 | Outpatient (CLI) | payer BC, SELFPAY ==
--- NOTE | 2025-02-23 08:04 | DI.MAMMO_ITS ---
Exam(s) MAMMO SCREENING EXAM: MAMMO SCREENING CLINICAL HISTORY: screening,z12.39. TECHNIQUE: Bilateral full field digital CC and MLO mammographic images were obtained with 3D tomosynthesis and utilizing computer aided detection (CAD). COMPARISON: Prior mammograms were reviewed. FINDINGS: There has been no significant change in the appearance and distribution of the fibroglandular tissue. There are no CAD designations. There are no new spiculated masses nor malignant appearing microcalcification groups. There is no significant architectural distortion nor skin thickening-retraction. IMPRESSION: No radiographic evidence of malignancy. BI-RADS Category 1 - Negative Breast Density - Category B - There are scattered areas of fibroglandular density. Breast density Category C or D implies that the patient has dense breast tissue. Dense breast tissue can make it harder to find cancer on a mammogram. Dense breast tissue is also associated with an increased risk of breast cancer. This information about the result of the mammogram report was provided to the patient to raise their awareness. Use this report when you speak with the patient about their risks for breast cancer, which includes their family history. At that time, you may recommend additional screening tests (Ultrasound or MRI) as these tests may add significant information. A negative radiographic report should not delay biopsy if a dominant or clinically suspicious mass is present. Up to ten percent of cancers are not identified on mammography. A negative report may reinforce clinical impression. Adenosis and dense breasts may obscure an underlying neoplasm. False positive reports average 6 to 10%. Patient will receive a letter notifying them of these results.
== END 2025-02-23 08:25 ==
PROVIDERS: PCP Nurse Practitioner Family; Visit Provider Nurse Practitioner Family
DX: Z12.31 Encounter for screening mammogram for malignant neoplasm of breast (principal); R92.323 Mammographic fibroglandular density, bilateral breasts
CPT/HCPCS: 77063; 77067